=== PATIENT | male | born 1965 | race African-American/Black ===

== ENCOUNTER 2018-04-19 21:08 | Emergency (ER) | payer OTHER ==
[2018-04-19] MEDS ORDERED: Azithromycin 250 MG TAB ONE (21:42)
[2018-04-19] MEDS ORDERED: predniSONE 20 MG TAB ONE (21:42)
--- NOTE | 2018-04-19 21:53 | RAD ---
TWO VIEWS CHEST: 04/19/18 COMPARISON: 01/05/14, 03/13/18. HISTORY: Cough. Congestion. FINDINGS: Normal cardiac silhouette. The pulmonary vessels and hilum are normal. No consolidation or mass. No p neumothorax or osseous abnormalities. IMPRESSION: No acute cardiopulmonary process. POS: [facility]
== END 2018-04-19 21:53 | disposition home or self-care (01) ==
LOC: NAV ERS 21:08
DX: J44.1 Chronic obstructive pulmonary disease with (acute) exacerbation (principal); K21.9 Gastro-esophageal reflux disease without esophagitis; I10 Essential (primary) hypertension; E78.00 Pure hypercholesterolemia, unspecified; F32.9 Major depressive disorder, single episode, unspecified; F17.210 Nicotine dependence, cigarettes, uncomplicated; Z79.82 Long term (current) use of aspirin; Z79.899 Other long term (current) drug therapy
CPT/HCPCS: 71046; 94760; J7506; J7620

== ENCOUNTER 2021-09-24 19:49 | Emergency (ER) | payer OTHER ==
[2021-09-26 12:22] LABS: SARS-CoV-2 PCR by NAA Not Detected (NotDetected)
== END 2021-09-24 20:21 | disposition home or self-care (01) ==
LOC: NAV ERS 19:49
DX: J06.9 Acute upper respiratory infection, unspecified (principal); B34.9 Viral infection, unspecified; Z20.822 Contact with and (suspected) exposure to COVID-19; I10 Essential (primary) hypertension; K21.9 Gastro-esophageal reflux disease without esophagitis; J44.9 Chronic obstructive pulmonary disease, unspecified; M10.9 Gout, unspecified; E78.00 Pure hypercholesterolemia, unspecified; F17.210 Nicotine dependence, cigarettes, uncomplicated
CPT/HCPCS: 99283; U0003; U0005